=== PATIENT | male | born 1945 | race Caucasian/White ===

== ENCOUNTER 2024-03-14 02:07 | Inpatient (IN) | payer MEDICARE, BC, SELFPAY ==
[2024-03-13 23:47] VITALS: BP 160/93
[2024-03-13 23:49] VITALS: BMI 30.3
[2024-03-14] VITALS (11 sets, daily range): BP systolic 119–174; BP diastolic 79–105; BMI 29.6
[2024-03-14 00:01] LABS: % Basophils 0.4 % (0-2); % Eosinophils 0.1 % (0-6); % Immature Granulocytes 0.3 % (0-0.5); % Lymphocytes 10.5 % (20.5-51.1); % Monocytes 11.2 % (1.7-9.3); % Neutrophils 77.5 % (42.2-75.2); Absolute Monocytes 1.1 10^3/uL (0.1-0.6); Absolute Neutrophils 7.3 10^3/uL (1.4-6.5); Hematocrit 46.5 % (39.0-52.0); Hemoglobin 16.1 g/dL (13.0-18.0); Mean Corp Hgb Conc. 34.6 g/dL (33.0-37.0); Mean Corpuscular Hgb 31.1 pg (27.0-31.0); Mean Corpuscular Volume 89.9 fL (80.0-94.0); Mean Platelet Volume 9.9 fL (7.4-10.4); Nucleated Red Blood Cells % 0 % (-); Platelet Count 247 10^3/uL (130-400); Red Blood Cell Count 5.17 10^6/uL (4.70-6.10); Red Cell Dist. Width 13.6 % (11.5-14.5); White Blood Cell Count 9.4 10^3/uL (4.8-10.8)
--- NOTE | 2024-03-14 00:02 | ED.GENMED ---
History of Present Illness
General
Chief Complaint: Weakness
Source: patient and spouse
Exam Limitations: none
Time Seen by Provider: 03/13/24 23:45
History of Present Illness
History of Present Illness:
This is a 78 year old male that is brought in by ambulance with c/o weakness. states that he started to get sick yesterday. State that today he couldn't get OOB and he slipped to the floor and couldn't get up. States that he stayed in bed as
he just didn't feel good today. States that he felt weak and drained. and patient state that he did not hit his head. states that she gave him Cephalexin 500mg tonight. States that he has had a fever, cough, nausea and a headache. Denies
any chills, chest pain, SOB, abd pain, vomiting, diarrhea, dizziness, urinary burning.
Past History
Past History
ED Past Medical History: Other; Negative Asthma, HTN, Hypercholesterolemia or NIDDM
ED Past Surgical History: Orthopedic (Left total knee replacement, Bilateral carpal tunnel. Left knee meniscus repair, ) and Other (Hemorrhoidectomy)
Social History
Tobacco: Non-smoker
Alcohol: Occasional
Drug: None
Personal:
Living: with family
Family History
Family History: Other
Review of Systems
Review of Systems
All Other Systems: ROS reviewed and negative except as documented in HPI and ROS
Constitutional: Reports fever; Denies chills
EENT: Reports no symptoms
Respiratory: Reports cough; Denies trouble breathing
Cardiac: Reports no symptoms; Denies chest pain
ABD/GI: Reports nausea; Denies abdominal pain, vomiting or diarrhea
: Reports no symptoms; Denies dysuria, frequency or urgency
Musculoskeletal: Reports no symptoms
Skin: Reports no symptoms
Neurological: Reports headache; Denies dizzy
Psychiatric: Reports no symptoms
Phy Exam
General Physical Exam
General Presentation: no apparent distress
General age: appears stated age
General Skin: warm and dry
General Habitus: elderly
General Mental: alert
General Hydration: dry mucous membranes
ENT Exam
ENT Exam: TM's normal, pharynx normal and neck supple
Eye Exam
Eye Exam: EOMI
Cardiovascular Exam
Cardiovascular Exam: regular rate/rhythm, no edema, no murmur and normal peripheral pulses
Pulmonary Exam
Pulmonary Exam: no respiratory distress, chest non tender, no rhonchi, no wheezing and other (Dry cough noted, Fine crackles at right base)
Gastrointestinal Exam
Gastrointestinal Exam: normal bowel sounds, non tender, soft, no organomegaly, no pulsatile mass and non distended
Musculoskeletal Exam
Musculoskeletal Exam: full ROM and no edema
Skin Exam
Skin Exam: normal color, warm/dry, no rash and no petechia
Psychiatric Exam
Psychiatric Exam: normal mood/affect
Course
Orders/Labs/Results
Orders:
Orders
03/13/24 23:52
Complete Blood Count/With Diff Urgent
Comprehensive Metabolic Panel Urgent
03/14/24 00:01
Rectal Temp- Treatment ONCE
0.9% Sodium Chloride 1000 ml [Nss] 1,000 ml IV BOLUS
Acetaminophen [Tylenol] 1,000 mg PO NOW STA
CR Chest - 2 Views Urgent
Comment:
Reason For Exam: Cough, fever
03/14/24 00:09
Electrocardiogram (*1) Urgent
Reason for Study: Fatigue / Weakness
EKG- Treatment ONCE
03/14/24 00:10
COVID-19 Antigen Urgent
Source: Nasal Swab
Lactic Acid Urgent
Influenza A+B Rapid Molecular Urgent
RAYMOND Source: Nasal Swab
Specimen Description:
03/14/24 00:39
Urinalysis Reflex To Culture Urgent
Date Specimen was Collected: 03/14/24
Time Specimen was Collected: 00:17
Urine Microscopic Reflex Cult Urgent
Urine Culture Urgent
RAYMOND Source: U
Specimen Description:
Date Specimen was Collected: 03/14/24
Time Specimen was Collected: 00:17
Abnormal Lab Results
03/13/24 03/14/24
23:52 00:39
MCH 31.1 H pg
(27.0-31.0)
Absolute Neuts (auto) 7.3 H 10^3/uL
(1.4-6.5)
Absolute Lymphs (auto) 1.0 L 10^3/uL
(1.2-3.4)
Absolute Monos (auto) 1.1 H 10^3/uL
(0.1-0.6)
Neutrophils % 77.5 H %
(42.2-75.2)
Lymphocytes % 10.5 L %
(20.5-51.1)
Monocytes % 11.2 H %
(1.7-9.3)
Sodium 134 L mmol/L
(135-145)
Creatinine 1.5 H mg/dL
(0.7-1.3)
Glucose 120 H mg/dl
(70-99)
AST 94 H U/L
(17-59)
ALT 95 H U/L
(0-50)
Urine Ketones 2+ A
(Negative)
Ur Occult Blood Reflex Trace A
(Negative)
Urine RBC 7-10 A /HPF
(0-2)
Urine Bacteria (Reflex) Moderate A
(Negative)
03/13/24 23:52
03/13/24 23:52
glucose nonfasting. AST/ALT elevation. Urine negative for infection. COVID negative. Positive for Influenza A.
Vital Signs
Initial and Last Documented VS:
Initial Vital Signs
Temp
98.7 F
12/21/24 23:44
Last Documented Vital Signs
Temp Pulse Resp BP Pulse Ox
103.7 F H 85 22 162/85 90
03/14/24 00:13 03/14/24 00:00 03/14/24 00:00 03/14/24 00:00 03/14/24 00:00
MDM/Problems Addressed
Differential Diagnosis Includes:
COVID, PNA,
MDM/Problems Addressed:
This is a 78 year old male that comes in by ambulance with c/o weakness and fatigue. States that he started yesterday not feeling well and today he stayed most of the day in bed. States that he tried to get up and slide to the floor. States that he
has a cough and fever.
Will check labs, Chest x-ray, Urine. Will give IV fluid, Tylenol for fever.
Back into see patient and . Explained that he has Influenza A. states that he was unable to get up and she can't lift patient. Explained that he was Hypoxic. Will admit patient. Hospitalist notified.
Chronic conditions affecting care:
NA
Acute Exacerbation and/or Progression of Chronic Illness:
NA
*Pulse Oximetry
Patient hypoxic: yes
Comment: 89-90% placed on 2 liters nasal cannula
*EKG
Interpreted by ED Provider?: Yes
*Breading Machine Tender Interpretation
Rate: normal
Heart Rate: 88
Rhythm: sinus
*Critical Care Note
Total Time (30-74mins, 75-104mins- exclusive of procedures): Not Applicable
ED Attending Note
-
Portions of this chart may have been created with voice recognition software.� Occasional wrong word or��sound alike� substitutions may have occurred due to the inherent limitations of voice recognition software.
Discharge Plan
Departure
Patient Disposition: Admit
Date of Disposition: 03/14/24
Time of Disposition: 01:23
Admit to: Med/Surg
Presentation/result/management discussed w/ accepting MD/DO: Hospitalist
Patient with high blood pressure during this ER visit?: Yes
Condition: Good
Covid-19: Negative COVID-19
Discharge Problem:
Weakness, Influenza A, Hypoxia
Prescriptions:
No Action
No Current Medications
0
Referrals:
Eddie Paris MD [Family Provider] -
Interventions
Interventions:
*Risk Screen - Suicide Last Done: 03/13/24 23:44
*General Assessment Last Done: 03/13/24 23:44
*Neglect/Abuse Screening Last Done: 03/13/24 23:44
*ED COVID-19 Vaccine History Last Done: 03/13/24 23:44
ED- Cardiac Assessment Last Done: 03/13/24 23:48
ED- Neurological Assessment Last Done: 03/13/24 23:48
ED- Pulmonary Assessment Last Done: 03/13/24 23:48
Discharge Date and Time
Print Language: BENGALI
[2024-03-14] MEDS: TYLENOL 1000 MG PO (00:08)
[2024-03-14] MEDS: NSS 1000 IV ×2 (00:08→04:49)
[2024-03-14 00:12] LABS: ALT (SGPT) 95 U/L (0-50); AST (SGOT) 94 U/L (17-59); Albumin 4.9 g/dl (3.5-5.0); Alkaline Phosphatase 81 U/L (38-126); Blood Urea Nitrogen 18 mg/dl (9-20); Calcium 9.6 mg/dl (8.4-10.2); Carbon Dioxide 24 mmol/L (22-30); Chloride 99 mmol/L (98-107); Estimated Creatinine Clearance 49 ml/min; Glucose 120 mg/dl (70-99); Potassium 4.4 mmol/L (3.5-5.1); Sodium 134 mmol/L (135-145); Total Bilirubin 0.7 mg/dl (0.2-1.3); Total Protein 7.8 g/dl (6.3-8.2); eGFR 47.95
[2024-03-14 00:34] LABS: Lactic Acid 1.5 mmol/L (0.7-2.0)
[2024-03-14 00:49] LABS: COVID-19 Antigen Negative (Negative)
[2024-03-14 00:51] LABS: Urine Albumin Trace (Neg - Trace); Urine Bilirubin Negative (Negative); Urine Character Clear (Clear); Urine Glucose Negative (Negative); Urine Ketone 2+ (Negative); Urine Leukocyte Negative (Negative); Urine Nitrite Negative (Negative); Urine Occult Blood Trace (Negative); Urine Specific Gravity 1.025 (<1.030); Urine Urobilinogen 1+ (Neg - 1+)
[2024-03-14 00:56] LABS: Urine Color Amber
[2024-03-14 01:18] LABS: Urine Amorphous Seen
[2024-03-14 01:19] LABS: Urine Mucus Moderate
[2024-03-14 01:21] LABS: Urine Bacteria Moderate (Negative)
--- NOTE | 2024-03-14 01:40 | HPS.HSE ---
Family Physician
-
Family Physician: Eddie Paris
Chief Complaint
-
Fever and weakness
History of Present Illness
This is a 78-year-old who denies any significant past medical history presenting to the emergency department from home with cough fevers weakness and a fall.
Patient was in usual state of health until about 2 days ago. Spouse reported that he started having cough and congestion. Spouse felt he was having trouble breathing already. Patient declined any medical intervention. He continues to have cough
and then developed a fever to as high as 102 at home. He had low appetite. He had frequent loose stools. He reported worsened chronic back pain. Denies any nausea or vomiting. He had no prior sick contacts.
Today due to the ongoing fevers spouse gave him cold and cough medicine as well as a dose of cephalexin. He became so weak that he had a fall because he could not get out of bed and slipped to the floor. He was unable to get up. Patient stated he
felt drained and generally weak. He denies any urinary symptoms including dysuria, hematuria or frequency. He denies any abdominal pain.
In the emergency department he was found to be febrile to 103, blood pressure was 160/80 with a pulse of 83 he was requiring 2 L to maintain a saturation of around 90%. ECG showed normal sinus rhythm at a rate of 87. Chest x-ray shows no acute
infiltrates. COVID test was negative. Influenza A was positive. CBC was complete within normal limits. Electrolytes are normal. BUN was 18 creatinine was 1.5 which is up from around 0.93 years ago. He had slight elevation in AST and ALT to 94
and 95 respectively. UA was negative for leukocyte esterase and negative for nitrites. He had a few cells but appeared to be contaminated with squamous and urothelial cells.
Medical History
Past Medical History
Past Medical History: Reports None
Past Surgical History: Reports Orthopedic (Left total knee arthroplasty) and Other (Hernia repair)
Additional Past Surgical History:
Hemorrhoidectomy
Social History
Tobacco: Non-smoker
Alcohol: None
Drug: None
Personal:
Living: With Family
Employment: Retired
Family History
Family History: Not pertinent
Allergies / Home Medications
Allergies reflects when Allergies were last updated in [employer].
Home Medications with original date entered in [employer]
Allergy/Medication List:
Allergies
Allergy/AdvReac Type Severity Reaction Status Date / Time
hydrogen peroxide Allergy Anaphylaxis Verified 03/13/24 23:44
Home Medications
No Meds [No Current Medications] 03/17/21
Review of Systems
-
History Source: Patient and Family
Constitutional: Reports Fever and Fatigue
EENT: Reports No Symptoms
Respiratory: Reports Cough and Trouble Breathing
Cardiac: Reports No Symptoms
Abdomen/GI: Reports No Symptoms
: Reports No Symptoms
Skin: Reports No Symptoms
Neurological: Reports Weakness (generalized weakness)
Endocrine: Reports No Symptoms
Hematologic/Lymphatic: Reports No Symptoms
Psych: Reports No Symptoms
Physical Exam
Vital Signs
Vital Signs
Temp Pulse Resp BP Pulse Ox
103.7 F H 87 22 133/79 93
03/14/24 00:13 03/14/24 00:45 03/14/24 00:45 03/14/24 01:13 03/14/24 01:15
Physical Exam
General: Well Developed, Comfortable and Poor Appetite
HEENT: NormoCephalic, Anicteric, Atraumatic, PERRLA and Oxygen
Respiratory: Clear, Non Labored Respirations and Decreased Breath Sounds
Cardiac: S1/S2 and Regular Rhythm
Breast: Deferred by me
GI: Soft, Non Tender and Normal Bowel Sounds
Rectal: Deferred by Provider
Genito-urinary: Deferred by me
Musculoskeletal: No Clubbing, No Cyanosis and No Edema
Skin: Warm and Dry
Neuro: AO x 3 and No Motor Deficits
Hematologic/Lymphatic: No Lymphadenopathy
Psych: Calm
Laboratory Results
-
03/13/24 23:52
03/13/24 23:52
Laboratory Results
Lactic Acid 1.5 mmol/L (0.7-2.0) 03/14/24 00:10
Total Bilirubin 0.7 mg/dl (0.2-1.3) 03/13/24 23:52
AST 94 U/L (17-59) H 03/13/24 23:52
ALT 95 U/L (0-50) H 03/13/24 23:52
Alkaline Phosphatase 81 U/L (38-126) 03/13/24 23:52
Data Reviewed
-
Diagnostic Radiology: Image Personally Visualized and interpreted
Medical Tests (Nuc Med, Echo, EKG etc): Image Personally Visualized and interpreted
Lab Data: Labs Reviewed by me
Old Records: Reviewed
Impression/Plan
-
IMPRESSION:
Generally healthy 78-year-old with no significant past medical history presents to the emergency department with cough weakness and high fevers and found to have influenza A. He is hypoxic requiring 2 L of oxygen at least. Chest x-ray shows no
acute infiltrates.
PLAN:
1. Severe Influenza A - Patient with + flu test and typical symptoms with significant oxygen requirement. He is generally healthy. Duration about 48hrs. Mild dehydration.
- admit to med/surg for now
- no infiltrates on xray, will hold off abx for pna
- check mrsa swab
- start tamiflu bid (started 75mg then 30mg bid based on CrCl < 60, adjust with improvement in kidney function)
- supportive care with supplemental oxygen, iv fluids, antipyretics and antitussives
- PT eval
2. Renal dysfunction - Apparent MILIND with Cr of 1.5, was 0.9 2020, cannot rule out progressive renal disease but has no underlying chronic medical illness
- IV fluids for now and monitor
DVT PPX - lovenox sq
Code status - full code
[2024-03-14] MEDS: TAMIFLU 75 MG PO (01:59)
[2024-03-14] MEDS: FLUSH (NSS) 1 FLUSH IV ×2 (02:00→14:03)
[2024-03-14 07:28] LABS: Blood Urea Nitrogen 18 mg/dl (9-20); Calcium 8.9 mg/dl (8.4-10.2); Carbon Dioxide 27 mmol/L (22-30); Chloride 100 mmol/L (98-107); Estimated Creatinine Clearance 46 ml/min; Glucose 94 mg/dl (70-99); Potassium 4.3 mmol/L (3.5-5.1); Sodium 135 mmol/L (135-145); eGFR 52.09
[2024-03-14 07:40] LABS: Hematocrit 43.8 % (39.0-52.0); Hemoglobin 14.6 g/dL (13.0-18.0); Mean Corp Hgb Conc. 33.3 g/dL (33.0-37.0); Mean Corpuscular Hgb 30.5 pg (27.0-31.0); Mean Corpuscular Volume 91.4 fL (80.0-94.0); Mean Platelet Volume 10.4 fL (7.4-10.4); Platelet Count 236 10^3/uL (130-400); Red Blood Cell Count 4.79 10^6/uL (4.70-6.10); Red Cell Dist. Width 13.8 % (11.5-14.5); White Blood Cell Count 8.2 10^3/uL (4.8-10.8)
--- NOTE | 2024-03-14 13:26 | W.PN.UPDATE ---
Update Note
Progress Note Update
Non-billable addendum (H&P entered 130 AM)
Admitted with mild hypoxia, influenza A infection. CXR did show possible L sided PNA.
On Tamiflu, 1L NC
Assessment:
Severe Influenza A infection
Community acquired pneumonia
Acute hypoxic respiratory insufficiency on 1L NC
- continue Tamiflu, day 2
- start Rocephin, doxy, day 1
- supportive care with fever control, anti-tussives
- wean O2
- PT evals
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
- continue IVF; monitor BMP
Hypertensive urgency, no formal HTN diagnosis
- start prn Hydralazine, consider adding consultant luxury and auto. 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
DVT ppx: Lovenox
Code: Full
[2024-03-14] MEDS: STERILE WATER FOR INJECTION 10 ML IV (14:02)
[2024-03-14] MEDS: ROCEPHIN 1000 MG IV (14:02)
[2024-03-14] MEDS: LOVENOX 40 MG SC (17:15)
[2024-03-14] MEDS: TAMIFLU 30 MG PO (21:19)
[2024-03-14] MEDS: VIBRAMYCIN 100 MG PO (21:19)
[2024-03-15] MEDS: TAMIFLU 30 MG PO (07:20)
[2024-03-15] MEDS: VIBRAMYCIN 100 MG PO (07:20)
[2024-03-15 07:34] VITALS: BP 129/89
[2024-03-15 07:46] LABS: Hemoglobin 16.1 g/dL (13.0-18.0); Mean Corp Hgb Conc. 34.3 g/dL (33.0-37.0); Mean Corpuscular Hgb 30.4 pg (27.0-31.0); Mean Corpuscular Volume 88.7 fL (80.0-94.0); Mean Platelet Volume 10.5 fL (7.4-10.4); Platelet Count 241 10^3/uL (130-400); Red Cell Dist. Width 13.5 % (11.5-14.5); White Blood Cell Count 9.4 10^3/uL (4.8-10.8)
[2024-03-15 08:13] LABS: Blood Urea Nitrogen 17 mg/dl (9-20); Calcium 9.4 mg/dl (8.4-10.2); Carbon Dioxide 24 mmol/L (22-30); Chloride 97 mmol/L (98-107); Estimated Creatinine Clearance 54 ml/min; Glucose 95 mg/dl (70-99); Potassium 3.9 mmol/L (3.5-5.1); Sodium 133 mmol/L (135-145); eGFR > 60.00
--- NOTE | 2024-03-15 11:37 | W.PN.HOSP.TC ---
Today's Communication/Plan
-
dc home
Assessment / Plan
Assessment / Plan
Assessment:
Severe Influenza A infection
Community acquired pneumonia
Acute hypoxic respiratory insufficiency on 1L NC
- continue Tamiflu, day 05/26
- start Rocephin, doxy, day 05/03
- supportive care with fever control, anti-tussives
- wean O2
- PT evals - home VN
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
- continue IVF; monitor BMP
Hypertensive urgency, no formal HTN diagnosis
- start prn Hydralazine, no indication for senior care agent
DVT ppx: Lovenox
Code: Full
More than 30 minutes spent in discharge including
Final examination of the patient
Summarizing hospital stay
Instructions for continuing care to all relevant caregivers
Preparation of discharge records, prescriptions, and referral forms
Total time spent (in minutes): 42
Anticipated Discharge: Today
Subjective/Interval History
-
Date of Service: March 15, 2024
breathing more comfortably, denies any other complaints
Objective Data
-
Labs:
Laboratory Results
03/15/24
07:13
WBC 9.4
Hgb 16.1
Hct 47.0
Plt Count 241
Sodium 133 L
Potassium 3.9
Chloride 97 L
Carbon Dioxide 24
BUN 17
Creatinine 1.2
Glucose 95
Calcium 9.4
Vital Signs:
Vital Signs
Temp Pulse Resp BP Pulse Ox
98.5 F 94 20 129/89 96
03/15/24 07:34 03/15/24 07:34 03/15/24 07:34 03/15/24 07:34 03/15/24 07:34
I&O
03/14/24 03/15/24 03/16/24
06:59 06:59 06:59
Intake Total 960 / 960
Output Total 800 / 800
Balance 160 / 160
Physical Exam
-
General: No Apparent Distress
HEENT: Normocephalic and Atraumatic
Respiratory: Negative Wheezes
Cardiac: Regular Rhythm and S1/S2
GI: Normal Bowel Sounds
Genito-urinary: No Costovertebral Tender
Musculoskeletal: No Edema
Neuro: AO x 3
Hematologic / Lymphatic: No Lymphadenopathy
Psych: Calm
Data Reviewed
-
Total Time Spent with Patient (in minutes): 42
Labs: Labs Reviewed by me
--- NOTE | 2024-03-15 11:54 | W.DS.TRANS ---
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
-
Discharge Instructions:
Discharge Diagnosis/Procedures influenza A and community acquired pneumonia
Diet Regular
Activity As tolerated
Driving Restrictions No driving
Bathing Restrictions None
Instructions:
Stand-Alone Forms:
Changes to Home Medications: No
Discharge Medications:
DC Medications w/original date entered in [employer]
cefdinir 300 mg capsule 300 mg PO BID #14 [facility] 03/15/24
doxycycline hyclate 100 mg capsule 100 mg PO Q12 #15 caps 03/15/24
oseltamivir 30 mg capsule 30 mg PO BID #5 [facility] 03/15/24
Home Medication Changes
Pending Results: No
Total time spent discharging patient (in min): 41
[2024-03-15] MEDS: ROCEPHIN 1000 MG IV (11:58)
[2024-03-15] MEDS: STERILE WATER FOR INJECTION 10 ML IV (11:58)
[2024-03-15] MEDS: FLUSH (NSS) 1 FLUSH IV (11:58)
[2024-03-15 12:23] VITALS: BP 130/86
--- NOTE | 2024-03-15 15:09 | CM ---
Alert awake oriented patient who lives with his Christina who lives in a 1 story home with 2 step to enter.He is independent in driving and in all activities of daily living.He was offered VN he declined need. aware. will drive him home.
No VN hx / No SNF history
Pharmacy [facility]
PCP DR Martina Callejas
PLAN Home Declined VN
== END 2024-03-15 12:40 | disposition home or self-care (01) | DRG 194 ==
LOC: 4 EAST ACU 02:07
PROVIDERS: Clinical Nurse Specialist Family Health; ADMITTING PHYSICIAN Internal Medicine; ATTENDING PHYSICIAN Internal Medicine; EMERGENCY PHYSICIAN Emergency Medicine; FAMILY PHYSICIAN Internal Medicine
DX: J10.00 Influenza due to other identified influenza virus with unspecified type of pneumonia (principal); N17.9 Acute kidney failure, unspecified; N18.32 Chronic kidney disease, stage 3b; W19.XXXA Unspecified fall, initial encounter; I16.0 Hypertensive urgency; Z96.652 Presence of left artificial knee joint; Z11.52 Encounter for screening for COVID-19; E86.0 Dehydration; E11.9 Type 2 diabetes mellitus without complications; R09.02 Hypoxemia; R06.89 Other abnormalities of breathing; E78.00 Pure hypercholesterolemia, unspecified; G56.03 Carpal tunnel syndrome, bilateral upper limbs
CPT/HCPCS: 71046; 80048; 80053; 81003; 81015; 83605; 85025; 85027; 87070; 87086; 87502; 87811; 93005; 96360; 97161; 99285